=== PATIENT | female | born 1945 | race African-American/Black ===

== ENCOUNTER 2017-03-02 14:14 | Emergency (ER) | payer MEDICARE, OTHER ==
[~2017-03-02] VITALS: Ht 165.1 cm; Wt 126.8 kg
[~2017-03-02 14:14] MED LIST: ALBU8.5H3 IH; ALLO100T PO; AMLO-511 PO; ASPI-556 PO; CELE100 PO; CIP250 PO; DEXL60CA3 PO; METR250 PO; MULT-36 PO; ONDA4 PO; SIMV40TA5 PO; VITAD50000 PO
[2017-03-02] MEDS ORDERED: GABA-531 PO (14:26)
[2017-03-02] MEDS ORDERED: CACARB500 PO (14:26)
[2017-03-02] MEDS ORDERED: ANAS1TAB49 PO (14:26)
[2017-03-02] MEDS ORDERED: HYDROCODONE/ACETAMINOPHEN 5-325 MG TABLET PO ONE (15:45)
[2017-03-02 16:32] VITALS: BP 117/61
== END 2017-03-02 17:48 | disposition home or self-care (01) ==
LOC: EMS 14:18
DX: S80.02XA Contusion of left knee, initial encounter (principal); S80.01XA Contusion of right knee, initial encounter; I10 Essential (primary) hypertension; M19.90 Unspecified osteoarthritis, unspecified site; J44.9 Chronic obstructive pulmonary disease, unspecified; I12.9 Hypertensive chronic kidney disease with stage 1 through stage 4 chronic kidney disease, or unspecified chronic kidney disease; E11.22 Type 2 diabetes mellitus with diabetic chronic kidney disease; N18.9 Chronic kidney disease, unspecified; F17.210 Nicotine dependence, cigarettes, uncomplicated; Z88.0 Allergy status to penicillin; Z79.82 Long term (current) use of aspirin; V43.62XA Car passenger injured in collision with other type car in traffic accident, initial encounter; Y93.89 Activity, other specified; Y92.89 Other specified places as the place of occurrence of the external cause; Y99.8 Other external cause status
CPT/HCPCS: 29505; 72100; 99284